=== PATIENT | male | born 1970 | race Caucasian/White ===

== ENCOUNTER 2021-12-19 13:25 | Outpatient (CLI) | payer OTHER | END 2021-12-19 13:26 | disposition home or self-care (01) | LOC: SCSMRI 13:25 → BICMRI 13:26 → EDSTATUS 14:00 | PROVIDERS: ATTEND Nurse Practitioner Family | DX: S93.402D Sprain of unspecified ligament of left ankle, subsequent encounter (principal); S90.02XA Contusion of left ankle, initial encounter; M25.472 Effusion, left ankle ==